=== PATIENT | male | born 1955 | race Two or more races ===

== ENCOUNTER 2019-06-10 08:07 | Outpatient (CLI) | payer OTHER ==
[~2019-06-10 08:07] MED LIST: SYNTHROID112 MCG PO
== END 2019-06-10 08:25 | disposition home or self-care (01) ==
LOC: SONOGRAMA 08:07
DX: E04.8 Other specified nontoxic goiter (principal)

== ENCOUNTER 2019-07-02 11:31 | Emergency (ER) | payer OTHER ==
[~2019-07-02] VITALS: Ht 177.8 cm; Wt 81.6 kg
[2019-07-02] MEDS ORDERED: IRBESARTAN-HCT1 EAC1 PO (12:17)
[2019-07-02] MEDS ORDERED: ZITHROMAX TRI-500 MG PO (12:17)
== END 2019-07-02 20:28 | disposition home or self-care (01) ==
LOC: ER 11:31
DX: I95.2 Hypotension due to drugs (principal); R42 Dizziness and giddiness; T50.995A Adverse effect of other drugs, medicaments and biological substances, initial encounter; Y92.89 Other specified places as the place of occurrence of the external cause

== ENCOUNTER 2024-07-26 22:42 | Emergency (ER) | payer OTHER ==
[~2024-07-26] VITALS: Ht 177.8 cm; Wt 84.8 kg
[~2024-07-26 22:42] MED LIST changes: +IRBESARTAN-HCT1 EAC1 PO; +ZITHROMAX TRI-500 MG PO
[2024-07-26] MEDS ORDERED: SYNTHROID100 MCG (22:49)
[2024-07-26] MEDS ORDERED: AVAPRO150 MG (22:49)
== END 2024-07-27 03:05 | disposition home or self-care (01) ==
LOC: ER 22:42
DX: R55 Syncope and collapse (principal); I10 Essential (primary) hypertension; E03.8 Other specified hypothyroidism